=== PATIENT | male | born 1970 | race Caucasian/White ===

== ENCOUNTER 2016-07-04 11:39 | Emergency (ER) | payer OTHER ==
--- NOTE | 2016-07-04 13:32 | DIAGNOSTIC IMAGING REPORT ---
PROCEDURE: XR CHEST 1 VIEW INDICATION: SHORTNESS OF BREATH TECHNIQUE: Portable AP view 01:18 p.m. COMPARISON: None. FINDINGS: Poor inspiration with mild bibasilar atelectasis. Heart and mediastinum are normal. Mild levoconvex curvature of the thoracic spine. IMPRESSION: 1. Poor inspiration with mild bibasilar atelectasis
--- NOTE | 2016-07-04 17:52 | ED CLINICAL REPORT ---
Clinical Report - Physicians/Mid Levels [facility] [address] [place] [address] 07/04/2016 11:39 Patient: MARCO CLIFFORD I Time Seen: 11:57. Arrived- By ambulance. Historian- patient and EMS personnel. History limited by intoxication. Physical Exam limited by intoxication. HISTORY OF PRESENT ILLNESS Chief Complaint: DECREASED MENTAL STATUS and CONFUSION. This started today and is still present. It was gradual in onset and has been waxing/waning. The patient is described as having decreased responsiveness. No history of chronic dementia. He has had alcohol consumption recently. No recent drug use. (Pt found outside local business with altered mentation - admits to drinking excessive alcohol. He denies injury and was able to ambulate with EMS assistance to the ambulance. He [place] [facility] [place] No weakness, numbness or recent fall. He has had difficulty walking. The patient has also had coordination problems. Usually is alert and oriented X3 and usually has normal mobility. Similar symptoms previously: Recent medical care: The patient was seen recently at another facility in the emergency department. Seen for similar symptoms. Evaluation/treatment: labs. Diagnosis: intoxication (alcohol). ( extensive lab work up reviewed). REVIEW OF SYSTEMS No fever, headache, head injury, chest pain or difficulty breathing. No cough, sore throat, abdominal pain, nausea or diarrhea. No difficulty with urination, skin rash, vomiting, bloody stools or back pain. All systems otherwise negative, except as recorded above. PAST HISTORY Alcoholism. Medications: None. Allergies: No Known Drug Allergy. None. SOCIAL HISTORY Former smoker. Regular heavy alcohol use. Patient is a longstanding alcoholic. Under the influence in E.D. History of drug use: cocaine. ADDITIONAL NOTES The nursing notes have been reviewed. PHYSICAL EXAM Vital Signs: 07/04/2016 11:41 BP: 100/61. HR: 86. RR: 15. O2 saturation: 92%. Temp: 97.5 F. Pain level now: 0/10. Appearance: Lethargic. The patient's speech is slurred and odor of alcohol is present. Patient in moderate distress. Head: Head atraumatic. Eyes: Pupils equal, round and reactive to light. ENT: Normal ENT inspection. Airway intact. Moist mucous membranes. Pharynx normal. Neck: Normal inspection. Neck supple. CVS: Normal heart rate and rhythm. Heart sounds normal. Respiratory: No respiratory distress. Breath sounds normal. Abdomen: Soft and nontender. Back: Normal inspection. Skin: Skin warm and dry. Normal skin color. No rash. Normal skin turgor. Extremities: Extremities exhibit normal ROM. No calf tenderness. No lower extremity edema. Neuro: Altered mental status. Eyes open spontaneously. Best verbal response: disoriented. Best motor response: obeys commands. Abnormal verbal response (very slurred speech). Abnormal speech. Cerebellar findings present. No motor deficit. No sensory deficit. LABS, X-RAYS, AND EKG Laboratory Tests: UA-Culture if indicated: (ABDULAZIZ: 07/04/2016 11:50) ( [facility] 07/04/2016 12:35) Final results Test Result Flag Units (Reference) URINE COLOR YELLOW URINE APPEARANCE CLEAR URINE GLUCOSE NEGATIVE (NEGATIVE) URINE BILIRUBIN NEGATIVE (NEGATIVE) URINE KETONE NEGATIVE (NEGATIVE) URINE SPECIFIC GRAVITY <= 1.005 L (1.010-1.030) URINE PH 6.5 (5.0-8.0) URINE PROTEIN NEGATIVE (NEGATIVE) URINE UROBILINOGEN 0.2 EU/dL (0.2-1.0) URINE NITRITE NEGATIVE (NEGATIVE) URINE BLOOD NEGATIVE (NEGATIVE) URINE LEUK ESTERASE NEGATIVE (NEGATIVE) URINE RBC NONE SEEN rbc/hpf (0-1) URINE WBC 0-1 wbc/hpf (0-1) URINE EPITHELIAL CELLS 0-1 EPI/hpf (0-5) URINE BACTERIA NONE SEEN (NONE SEEN) URINE COMMENT CULT NOT INDICATED URINE CULTURES ARE SET-UP BASED ON THE FOLLOWING CRITERIA:POSITIVE NITRITEPOSITIVE LEUKOCYTE ESTERASEGREATER THAN 10 WHITE BLOOD CELLSMODERATE (2+) OR GREATER BACTERIA CBC w Diff: (ABDULAZIZ: 07/04/2016 12:10) ( [facility] 07/04/2016 12:30) Final results Test Result Flag Units (Reference) WHITE BLOOD COUNT 6.8 K/uL (4.5-11.5) RED BLOOD COUNT 4.55 M/uL (4.50-5.90) HEMOGLOBIN 14.2 gm/dL (13.5-17.5) HEMATOCRIT 42.7 % (41.0-53.0) MEAN CELL VOLUME 94 fL (80-100) MEAN CORPUSCULAR HGB 31 pg (26-34) MEAN CORPUSCULAR HGB CONC 33 g/dL (31-37) RED CELL DISTRIBUTION WIDTH 15.7 H % (11.6-14.8) PLATELET COUNT 260 K/uL (150-400) NEUTROPHIL % 55.8 % (50-75) LYMPH % 33.9 % (25-40) MONO % 5.0 % (3-14) EOSINOPHIL % 4.0 % (0-4) BASOPHIL % 1.3 % (0-2) BNP: (ABDULAZIZ: 07/04/2016 12:10) ( [facility] 07/04/2016 13:06) Final results Test Result Flag Units (Reference) B-TYPE NATRIURETIC PEPTIDE 33.9 pg/ml (5-100) CHEM 13 PANEL: (ABDULAZIZ: 07/04/2016 12:10) ( [facility] 07/04/2016 12:53) Final results Test Result Flag Units (Reference) GLUCOSE 94 mg/dL (70-110) BUN 13 mg/dL (7-18) CREATININE 0.8 mg/dL (0.6-1.3) Estimated GFR >60 mL/min Estimated GFR- >60 mL/min Note: Persistent reduction over 3 months in eGFR<60 mL/min/1.73 m2 defines CKD. Patients with eGFR values>=60 mL/min/1.73 m2 may also have CKD if evidence ofpersistent proteinuria. Additional information may be foundat www.kidney.org. SODIUM 144 mmol/L (136-145) POTASSIUM 3.6 mmol/L (3.5-5.1) CHLORIDE 105 mmol/L (98-107) CARBON DIOXIDE 31 mmol/L (21-32) CALCIUM 8.5 mg/dL (8.5-10.1) TOTAL PROTEIN 6.8 g/dL (6.4-8.2) ALBUMIN 3.2 L g/dL (3.3-5.0) BILIRUBIN, TOTAL 0.2 mg/dL (0.0-1.0) ALKALINE PHOSPHATASE 68 U/L (46-116) AST (SGOT) 31 U/L (15-37) ALT (SGPT) 25 U/L (12-78) MAGNESIUM 2.0 mg/dL (1.8-2.4) LIPASE 196 U/L (73-393) AMYLASE 36 U/L (25-115) CPK 108 U/L (24-260) TROPONIN I <0.05 ng/mL (0.00-1.5) TROPONIN REFERENCE RANGE:<0.1 NEGATIVE0.1-1.5 INDETERMINANT>1.5 POSITIVE ETHYL ALCOHOL 337 H mg/dL (3-10) Urine Drug Screen: (ABDULAZIZ: 07/04/2016 11:50) ( M[facility]d 07/04/2016 12:35) Final results Test Result Flag Units (Reference) AMPHETAMINE/METHAMPHETAMINE NEGATIVE (NEGATIVE) BARBITURATE NEGATIVE (NEGATIVE) BENZODIAZEPINE NEGATIVE (NEGATIVE) CANNABINOID NEGATIVE (NEGATIVE) COCAINE NEGATIVE (NEGATIVE) ECSTASY NEGATIVE (NEGATIVE) METHADONE NEGATIVE (NEGATIVE) OPIATE NEGATIVE (NEGATIVE) The urine drug screen is a qualitative screening test fordrug overdose and abuse. All screen results should beconsidered as presumptive.Drugs screened for are as follows:BenzodiazepinesCocaineAmphetamines/MetamphetaminesTHC (Tetrahydrocannabinol)OpiatesBarbituratesEcstasyMethadonePositive results are unconfirmed. For confirmation, notifythe lab for the specimen to be sent to the reference lab.All confirmations must be performed by a differentmethodology.The ingestion of natural herbal and plant productscontaining Ephedra/Ephedra metabolites can produce in urineone or more substances capable of cross reacting withamphetamine/methamphetamine immunoassays. These testsprovide a preliminary result only. A more specificalternative chemical method must be used to obtain aconfirmed analytical result. . Bedside Tests: Glucose normal - 94 (performed by EMS). Pulse Oximetry: 07/04/2016 16:30 O2 saturation: 97%. (FIO2 - room air). Interpretation: normal. Note - Tests: (Breathalyzer 0.219 at 16:30. Breathalyzer 0.178 at 17:45). PROGRESS AND PROCEDURES Course of Care: Normal Saline with thiamine 100mg + folate 1mg + 1 amp MVI IVPB given. 16:26 07/04/16. Patient is stable. Physical exam findings are improved. Symptoms much better. 16:26 07/04/16. Pt eating a sandwich and drinking fluids 16:37 07/04/16. Breathalyzer still 0.219. Pt will need additional time to further metabolize his alcohol 17:50 07/04/16. Pt wants to go. He is not ataxic now. He is laughing and joking. He has no complaints. He [place] [employer] [place]after [place]") - given bus passes. He is also given new shoes and socks after his feet were washed. 07/04/2016 16:30 BP: 115/74. HR: 72. RR: 18. O2 saturation: 97%. Pain level now: 0/10. Patient/family counseled. [facility] work up [facility]). Disposition: Discharged. Condition: stable and improved. CLINICAL IMPRESSION Uncomplicated alcohol intoxication with alcohol dependence. INSTRUCTIONS Drink plenty of fluids. No alcohol. Seek medical help to quit drinking. (Please take a multivitamin daily; Please refer to the "Addiction, Recovering and "Alcohol Inotoxication" instructions given at [facility] yesterday.). Warnings: Further evaluation is necessary in order to recheck abnormal lab, obtain test results, conduct further tests and assess the possibility of serious illness. It is very important to follow up with a physician. GENERAL WARNINGS: Return or contact your physician immediately if your condition worsens or changes unexpectedly, if not improving as expected, or if other problems arise. Follow-up: Follow up with your doctor at [facility] - [address] [place] [address] [place] [address]; phone number: [phone] tomorrow. Follow-up with: [facility], , , [address], , [place], ; [facility], [facility], , [address] [place] [address] Follow up tomorrow. (Electronically signed by Willy Maher DO 07/04/2016 20:11)
--- NOTE | 2016-07-04 17:52 | ED ORDER SUMMARY ---
..... Patient: MARCO CLIFFORD I OrderSheet [facility] VisitID: [id number] [address] [place] [address] 45y, M Registration Date/Time: 07/04/2016 ORDER SHEET Weight: 81.6 kg (estimated) Allergies: None, No Known Drug Allergy GENERAL ORDERS: Block Chopper Hand (Continuous) (altered LOC) (11:55 07/04/2016 KKnebel R.N. per protocol) (11:58 KKnebel R.N.) CBC w Diff Urgent (11:55 07/04/2016 KKnebel R.N. per protocol) (11:57 PHutchinson DO) (Cancelled: Other11:57 PHutchinson DO) CMP Urgent (11:55 07/04/2016 KKnebel R.N. per protocol) (11:57 PHutchinson DO) (Cancelled: Other11:57 PHutchinson DO) UA-Culture if indicated Urgent (11:55 07/04/2016 KKnebel R.N. per protocol) (Ack 12:02 PWeiler ER Tech1) (12:18 KKnebel R.N.) Urine Drug Screen Urgent (11:55 07/04/2016 KKnebel R.N. per protocol) (Ack 12:02 PWeiler ER Tech1) (12:18 KKnebel R.N.) Oxygen (2 L/min) (NC) (11:55 07/04/2016 KKnebel R.N. per protocol) (11:58 KKnebel R.N.) POC Glucose (11:55 07/04/2016 KKnebel R.N. per protocol) (12:31 KKnebel R.N.) Vitals (11:55 07/04/2016 KKnebel R.N. per protocol) (11:58 KKnebel R.N.) POC Breathalyzer (11:55 07/04/2016 KKnebel R.N. per protocol) (12:18 KKnebel R.N.) Lipase Urgent (11:58 07/04/2016 PHutchinson DO) (Ack 12:02 PWeiler ER Tech1) (12:18 KKnebel R.N.) Amylase Urgent (11:58 07/04/2016 [facility]) (Ack 12:02 PWeiler ER Tech1) (12:18 KKnebel R.N.) BNP Urgent (11:58 07/04/2016 [facility]) (Ack 12:02 PWeiler ER Tech1) (12:18 KKnebel R.N.) Cardiac Panel Stat (11:58 07/04/2016 [facility]) (Ack 12:02 PWeiler ER Tech1) (13:04 KHoerner) Ethyl Alcohol Urgent (11:58 [facility]04/2016 [facility] (Ack 12:02 PWeiler ER Tech1) (13:04 KHoerner) Chest 1V (upright) Urgent (13:05 07/04/2016 [facility]) (Ack 13:09 PWeiler ER Tech1) (13:17 PWeiler ER Tech1) [place] [facility] 48 hours[place] (14:40 07/04/2016 [facility]) (Ack 14:49 PWeiler ER Tech1) (15:35 PWeiler ER Tech1) Breathalyzer (18:10 07/04/2016 DDean R.N. verbal order read back to [facility]) (18:11 DDean R.N.) Breathalyzer (18:11 07/04/2016 DDean R.N. verbal order read back to [facility]) (18:11 DDean R.N.) now and repeat in 1 hour MEDICATION ORDERS: IV FLUIDS: IV Saline Lock (11:55 07/04/2016 KKnebel R.N. per protocol) (12:18 KKnebel R.N.) IV NS with Normal Saline 1 Liter, Folic Acid 1 mg/L, Multivitamin Concentrate Intravenous 1 amp/L, Thiamine HCl 100 mg/L: initial bolus 1000 mL (1000 mL/hr), then none - (NOW) (11:58 07/04/2016 [facility]) (12:59 KKnebel R.N.) Zofran IV 4 mg (NOW) (11:58 07/04/2016 [facility]) (12:27 KKnebel R.N.) ORDER SHEET NOTES: [Electronically signed by Mable Rutherford R.N. (18:11 07/04/2016)] [Electronically signed by Willy Maher DO (20:11 07/04/2016)] [Electronically locked/signed by Mable Rutherford R.N. (18:11 07/04/2016)]
--- NOTE | 2016-07-04 17:52 | ED ORDER SUMMARY ---
..... Patient: MARCO CLIFFORD I OrderSheet [facility] VisitID: [id number] [address] [place] [address] 45y, M Registration Date/Time: 07/04/2016 ORDER SHEET Weight: 81.6 kg (estimated) Allergies: None, No Known Drug Allergy GENERAL ORDERS: [employer] (Continuous) (altered LOC) (11:55 07/04/2016 KKnebel R.N. per protocol) (11:58 KKnebel R.N.) CBC w Diff Urgent (11:55 07/04/2016 KKnebel R.N. per protocol) (11:57 PHutchinson DO) (Cancelled: Other11:57 PHutchinson DO) CMP Urgent (11:55 07/04/2016 KKnebel R.N. per protocol) (11:57 PHutchinson DO) (Cancelled: Other11:57 PHutchinson DO) UA-Culture if indicated Urgent (11:55 07/04/2016 KKnebel R.N. per protocol) (Ack 12:02 PWeiler ER Tech1) (12:18 KKnebel R.N.) Urine Drug Screen Urgent (11:55 07/04/2016 KKnebel R.N. per protocol) (Ack 12:02 PWeiler ER Tech1) (12:18 KKnebel R.N.) Oxygen (2 L/min) (NC) (11:55 07/04/2016 KKnebel R.N. per protocol) (11:58 KKnebel R.N.) POC Glucose (11:55 07/04/2016 KKnebel R.N. per protocol) (12:31 KKnebel R.N.) Vitals (11:55 07/04/2016 KKnebel R.N. per protocol) (11:58 KKnebel R.N.) POC Breathalyzer (11:55 07/04/2016 KKnebel R.N. per protocol) (12:18 KKnebel R.N.) Lipase Urgent (11:58 07/04/2016 PHutchinson DO) (Ack 12:02 PWeiler ER Tech1) (12:18 KKnebel R.N.) Amylase Urgent (11:58 07/04/2016 [facility]) (Ack 12:02 PWeiler ER Tech1) (12:18 KKnebel R.N.) BNP Urgent (11:58 07/04/2016 [facility]) (Ack 12:02 PWeiler ER Tech1) (12:18 KKnebel R.N.) Cardiac Panel Stat (11:58 07/04/2016 [facility]) (Ack 12:02 PWeiler ER Tech1) (13:04 KHoerner) Ethyl Alcohol Urgent (11:58 [facility]2016 [facility] (Ack 12:02 PWeiler ER Tech1) (13:04 KHoerner) Chest 1V (upright) Urgent (13:05 07/04/2016 [facility]) (Ack 13:09 PWeiler ER Tech1) (13:17 PWeiler ER Tech1) Old Records ([place] [facility] [place] in past 48 hours) (14:40 07/04/2016 [facility]) (Ack 14:49 PWeiler ER Tech1) (15:35 PWeiler ER Tech1) Breathalyzer (18:10 07/04/2016 DDean R.N. verbal order read back to [facility]) (18:11 DDean R.N.) Breathalyzer (18:11 07/04/2016 DDean R.N. verbal order read back to [facility]) (18:11 DDean R.N.) now and repeat in 1 hour MEDICATION ORDERS: IV FLUIDS: IV Saline Lock (11:55 07/04/2016 KKnebel R.N. per protocol) (12:18 KKnebel R.N.) IV NS with Normal Saline 1 Liter, Folic Acid 1 mg/L, Multivitamin Concentrate Intravenous 1 amp/L, Thiamine HCl 100 mg/L: initial bolus 1000 mL (1000 mL/hr), then none - (NOW) (11:58 07/04/2016 [facility]) (12:59 KKnebel R.N.) Zofran IV 4 mg (NOW) (11:58 07/04/2016 [facility]) (12:27 KKnebel R.N.) ORDER SHEET NOTES: [Electronically signed by Mable Rutherford R.N. (18:11 07/04/2016)] [Electronically signed by Willy Maher DO (20:11 07/04/2016)] [Electronically locked/signed by Mable Rutherford R.N. (18:11 07/04/2016)]
--- NOTE | 2016-07-04 17:52 | ED NURSING NOTES ---
Clinical Report - Nurses [facility] [address] [place] [address] 07/04/2016 11:39 Patient: MARCO CLIFFORD I TRIAGE Triage time 11:41 Jul 04 2016. Acuity: LEVEL 3. Chief Complaint: INTOXICATION. Alert. No acute distress. DREA COMA SCORE: [place] Coma Scale: 14- eyes open spontaneously (4); best verbal response- disoriented (4); best motor response- obeys commands (6). --11:56 Georgina Abernathy R.N. 11:41 07/04/16. BP: 100/61. HR: 86. RR: 15. O2 saturation: 92%. Temp: 97.5 F. Pain level now: 0/10. --11:56 Georgina Abernathy R.N. Weight: 81.6 kg estimated. Height/Length: 70 inches Estimated. BMI: 25.8. --11:53 Georgina Abernathy R.N. Medications None. --11:45 Georgina Abernathy R.N. Allergies None. --11:45 Georgina Abernathy R.N. No Known Drug Allergy. --17:00 KrishMable mota R.N. History Arrived by EMS. Historian: patient. This occurred today. Treatment WHANAU SUPPORT WORKER: None. Finger stick glucose performed (94). BP: 116 / palp. HR: 86. RR: 14. O2 saturation: 95 % room air. PAST MEDICAL HX: Unknown. Immunizations: status is unknown. SOCIAL HX: Former smoker. Heavy alcohol use. Last drink was just prior to arrival. Patient smells of ETOH in the emergency department. History of drug use: cocaine. SELF HARM ASSESSMENT: A self harm assessment was performed. (unable to obtain). ABUSE ASSESSMENT: Abuse assessment: unable to obtain. FALL RISK ASSESSMENT: Fall risk assessment completed. Risk factors identified include patient impairment of mobility and cognition. Fall interventions initiated. Side rails up x2. Brakes on Bed in low position. Patient visible from nurses' station. Call light in reach of patient. Instructed not to get up without assistance. NUTRITIONAL RISK ASSESSMENT: The nutritional assessment could not be obtained due to the patient's condition. FUNCTIONAL ASSESSMENT: The functional assessment could not be obtained due to patient condition. LEARNING NEEDS ASSESSMENT: The learning needs assessment could not be obtained due to the patient's condition. SKIN INTEGRITY ASSESSMENT: Skin integrity risk assessment completed. No skin integrity risk identified. --11:56 Georgina Abernathy R.N. PROBLEMS: Substance Abuse. Etoh. --11:46 Georgina Abernathy R.N. ADDITIONAL SURGERIES: Unable to answer. --11:46 Georgina Abernathy R.N. Interventions ID band on patient. ID band checked. Protocol initiated (Overdose ETOH). To room. --11:56 Georgina Abernathy R.N. PHYSICAL ASSESSMENT GENERAL / NEURO / PSYCH: Alert. Appears in no acute distress. Patient smells of alcohol. Patient appears calm and cooperative. Gag reflex present. The patient is disoriented to place and time. Patient's speech is slurred and incoherent. RESPIRATORY: Respirations not labored. CVS: Capillary refill less than 2 seconds. GI / : Abdomen soft and nontender. SKIN: Skin is warm and dry. --11:57 Georgina Abernathy R.N. NURSING PROGRESS NOTES athletic monitor, pulse oximeter and NIBP monitor placed on patient; cardiac nurse specialist- Lead II; monitor alarms on. Patient gowned. Head of bed elevated. Patient identifiers checked. Call light placed in reach. Side rails up x 2. Bed placed in lowest position. Brakes of bed on. Patient ready for evaluation- chart flagged. --11:57 Georgina Abernathy R.N. 11:50 07/04/16. Patient ID band checked for patient name and birthdate. Patient verbalized understanding. Clean catch urine collected with return of yellow-colored clear urine; sample sent to lab for urinalysis, culture and drug screen. Specimen labeled in the presence of the patient. --12:16 Georgina Abernathy R.N. 12:05 07/04/16. ( Pt unable to do breathalyzer). --12:07 Alicia Arriaza 12:10 07/04/16. Patient ID band checked for patient name and birthdate. Blood samples drawn from the left hand peripheral IV site with syringe by nurse ; labeled in presence of the patient and sent to lab: rainbow set. Line flushed with 10 mL normal saline post blood draw. --12:17 Georgina Abernathy R.N. 12:10 07/04/2016 Site #1 started via IV in the left hand with an 20g angiocath, with aseptic technique and good blood return; one attempt. Saline lock flushed with 10 mL saline. --12:17 Georgina Abernathy R.N. 12:27 07/04/2016 Zofran (Ondansetron HCl) IVP 4 mg given over 2 minute(s) via site #1. Allergies verified and confirmed 5 rights. IV patency established. IV site checked: no pain, redness, or swelling. IV flushed thoroughly pre- and post-medication administration. IVP given by RN. --12:27 Georgina Abernathy R.N. Point of care testing: performed by nurse. Glucose: 99. Result shown to the ED physician. Orders were not received. --12:31 Georgina Abernathy R.N. 12:49 07/04/16. BP: 117/67. HR: 97. RR: 26. O2 saturation: 68% on room air. Additional comments: notified MD of change in VS. --12:50 Georgina Abernathy R.N. 12:50 07/04/16. O2 saturation: 80% on nasal cannula at 4 liters/minute. --12:50 Georgina Abernathy R.N. 12:50 07/04/16. O2 saturation: 97% on non-rebreather at 15 liters/minute. Additional comments: Notified MD that pt is now on NRB and current VS. --12:51 Georgina Abernathy R.N. 12:55 07/04/16. ( inserted Nasopharyngeal airway). --13:04 Georgina Abernathy R.N. 12:57 07/04/2016 Started bag #1 1000 mL IV Fluids IV NS (Saline); at 500 mL/hr with Thiamine [IVPB] 100mg, Folic Acid [IVPB] 1mg and Multivitamin [IVPB] 10unit dose over 2 hour(s) via site #1 via IV pump. Allergies verified and confirmed 5 rights. IV patency established. IV site checked: no pain, redness, or swelling. IV flushed thoroughly pre- and post-medication administration. --12:59 Georgina Abernathy R.N. ( patient pull airway and removed NRB when this nurse attempted to put NRB back on patient he grabbed and pulled it away aggressively with arms flailing about). --13:05 Georgina Abernathy R.N. 13:05 07/04/16. HR: 88. RR: 12. O2 saturation: 98% on room air. --13:06 Georgina Abernathy R.N. 14:18 07/04/16. BP: 117/92. HR: 86. RR: 13. O2 saturation: 100%. Pain level now unable to obtain. Additional comments: pt sleeping. --14:18 Georgina Abernathy R.N. 15:10 07/04/16. BP: 123/90. HR: 77. RR: 14. O2 saturation: 100% on non-rebreather. Temp: deferred. Pain level now unable to obtain. Additional comments: Pt sleeping in dark room. In no acute distress . --15:34 Mable Rutherford R.N. 15:10. Care transferred and report received. --15:34 Mable Rutherford R.N. 15:10 07/04/2016 IV Fluids IV NS Discontinued: bag #1 STOPPED. Total amount infused: 1000 mL (converted to saline lock). --15:37 Mable Rutherford R.N. 15:45 07/04/16. BP: 125/83. HR: 78. RR: 12. O2 saturation: 100% on non-rebreather. Temp: deferred. Pain level now unable to obtain. Additional comments: cont to sleep . --16:28 Mable Rutherford R.N. 1620 Pt up at bedside, voided 800cc light yellow urine. asking for sandwich. --16:29 Mable Rutherford R.N. 16:35 Pt given po food and fluid, in no distress. denies nausea. --16:41 Mable Rutherford R.N. 16:30 07/04/16. BP: 115/74. HR: 72. RR: 18. O2 saturation: 97% on room air. Temp: deferred. Pain level now: 0/10. Additional comments: pt asking for additional sandwich, in no distress . --16:41 Mable Rutherford R.N. 16:40. ( Breathalizer = 0.219 , ERMD notified. done by Alicia Espinoza technical project lead). --16:43 Mable Rutherford R.N. 17:01 07/04/16. ( admitting here to have pt sign paperwork). --17:01 Mable Rutherford R.N. 17:29 07/04/16. ( Pt given wash clothes and towels by technical project lead. Pt standing at sink.). --17:29 Mable Rutherford R.N. ( Breathalyzer done, showed .179.). --17:46 Willy Acharya, Tech1 17:41 07/04/2016 Site #1 removed upon discharge. Bandaid applied. --17:46 Mable Rutherford R.N. 17:41 07/04/2016 IV Saline Lock Drip IV Discontinued: bag #1 STOPPED upon discharge. Total amount infused: 0 mL. IV patency established. IV site checked: no pain, redness, or swelling. IV flushed thoroughly. --17:46 Mable Rutherford R.N. 17:48 07/04/16. ( pt had pulled out own IV. ERMD notified, site cleaned and bandaid placed over. Pt has voided another 700cc light [id number] urine). --17:48 Mable Rutherford R.N. DISPOSITION / DISCHARGE Condition at departure: improved and stable. No learning barriers present. Discharge instructions provided and reviewed with the patient. Patient verbalized understanding. Written instructions provided in Slovenian. The patient was discharged (states he was going to mission) and unaccompanied at time of discharge. He left the Emergency Department ambulatory and via bus. --18:09 Mable Rutherford R.N. 17:55 07/04/16. BP: 118/82. HR: 112. RR: 18. O2 saturation: 96% on room air. Temp: deferred. Pain level now: 0/10. --18:09 Malbe Rutherford R.N. Locked/Released at 07/04/2016 18:11 by Mable Rutherford R.N.
--- NOTE | 2016-07-04 17:52 | ED CLINICAL REPORT ---
Clinical Report - Physicians/Mid Levels [facility] [address] [place] [address] 07/04/2016 11:39 Patient: MARCO CLIFFORD I Time Seen: 11:57. Arrived- By ambulance. Historian- patient and EMS personnel. History limited by intoxication. Physical Exam limited by intoxication. HISTORY OF PRESENT ILLNESS Chief Complaint: DECREASED MENTAL STATUS and CONFUSION. This started today and is still present. It was gradual in onset and has been waxing/waning. The patient is described as having decreased responsiveness. No history of chronic dementia. He has had alcohol consumption recently. No recent drug use. (Pt found outside local business with altered mentation - admits to drinking excessive alcohol. He denies injury and was able to ambulate with EMS assistance to the ambulance. He reports being at [facility] yesterday for similar problems). No weakness, numbness or recent fall. He has had difficulty walking. The patient has also had coordination problems. Usually is alert and oriented X3 and usually has normal mobility. Similar symptoms previously: Recent medical care: The patient was seen recently at another facility in the emergency department. Seen for similar symptoms. Evaluation/treatment: labs. Diagnosis: intoxication (alcohol). ( extensive lab work up reviewed). REVIEW OF SYSTEMS No fever, headache, head injury, chest pain or difficulty breathing. No cough, sore throat, abdominal pain, nausea or diarrhea. No difficulty with urination, skin rash, vomiting, bloody stools or back pain. All systems otherwise negative, except as recorded above. PAST HISTORY Alcoholism. Medications: None. Allergies: No Known Drug Allergy. None. SOCIAL HISTORY Former smoker. Regular heavy alcohol use. Patient is a longstanding alcoholic. Under the influence in E.D. History of drug use: cocaine. ADDITIONAL NOTES The nursing notes have been reviewed. PHYSICAL EXAM Vital Signs: 07/04/2016 11:41 BP: 100/61. HR: 86. RR: 15. O2 saturation: 92%. Temp: 97.5 F. Pain level now: 0/10. Appearance: Lethargic. The patient's speech is slurred and odor of alcohol is present. Patient in moderate distress. Head: Head atraumatic. Eyes: Pupils equal, round and reactive to light. ENT: Normal ENT inspection. Airway intact. Moist mucous membranes. Pharynx normal. Neck: Normal inspection. Neck supple. CVS: Normal heart rate and rhythm. Heart sounds normal. Respiratory: No respiratory distress. Breath sounds normal. Abdomen: Soft and nontender. Back: Normal inspection. Skin: Skin warm and dry. Normal skin color. No rash. Normal skin turgor. Extremities: Extremities exhibit normal ROM. No calf tenderness. No lower extremity edema. Neuro: Altered mental status. Eyes open spontaneously. Best verbal response: disoriented. Best motor response: obeys commands. Abnormal verbal response (very slurred speech). Abnormal speech. Cerebellar findings present. No motor deficit. No sensory deficit. LABS, X-RAYS, AND EKG Laboratory Tests: UA-Culture if indicated: (ABDULAZIZ: 07/04/2016 11:50) ( [facility] 07/04/2016 12:35) Final results Test Result Flag Units (Reference) URINE COLOR YELLOW URINE APPEARANCE CLEAR URINE GLUCOSE NEGATIVE (NEGATIVE) URINE BILIRUBIN NEGATIVE (NEGATIVE) URINE KETONE NEGATIVE (NEGATIVE) URINE SPECIFIC GRAVITY <= 1.005 L (1.010-1.030) URINE PH 6.5 (5.0-8.0) URINE PROTEIN NEGATIVE (NEGATIVE) URINE UROBILINOGEN 0.2 EU/dL (0.2-1.0) URINE NITRITE NEGATIVE (NEGATIVE) URINE BLOOD NEGATIVE (NEGATIVE) URINE LEUK ESTERASE NEGATIVE (NEGATIVE) URINE RBC NONE SEEN rbc/hpf (0-1) URINE WBC 0-1 wbc/hpf (0-1) URINE EPITHELIAL CELLS 0-1 EPI/hpf (0-5) URINE BACTERIA NONE SEEN (NONE SEEN) URINE COMMENT CULT NOT INDICATED URINE CULTURES ARE SET-UP BASED ON THE FOLLOWING CRITERIA:POSITIVE NITRITEPOSITIVE LEUKOCYTE ESTERASEGREATER THAN 10 WHITE BLOOD CELLSMODERATE (2+) OR GREATER BACTERIA CBC w Diff: (ABDULAZIZ: 07/04/2016 12:10) ( [facility] 07/04/2016 12:30) Final results Test Result Flag Units (Reference) WHITE BLOOD COUNT 6.8 K/uL (4.5-11.5) RED BLOOD COUNT 4.55 M/uL (4.50-5.90) HEMOGLOBIN 14.2 gm/dL (13.5-17.5) HEMATOCRIT 42.7 % (41.0-53.0) MEAN CELL VOLUME 94 fL (80-100) MEAN CORPUSCULAR HGB 31 pg (26-34) MEAN CORPUSCULAR HGB CONC 33 g/dL (31-37) RED CELL DISTRIBUTION WIDTH 15.7 H % (11.6-14.8) PLATELET COUNT 260 K/uL (150-400) NEUTROPHIL % 55.8 % (50-75) LYMPH % 33.9 % (25-40) MONO % 5.0 % (3-14) EOSINOPHIL % 4.0 % (0-4) BASOPHIL % 1.3 % (0-2) BNP: (ABDULAZIZ: 07/04/2016 12:10) ( [facility] 07/04/2016 13:06) Final results Test Result Flag Units (Reference) B-TYPE NATRIURETIC PEPTIDE 33.9 pg/ml (5-100) CHEM 13 PANEL: (ABDULAZIZ: 07/04/2016 12:10) ( [facility] 07/04/2016 12:53) Final results Test Result Flag Units (Reference) GLUCOSE 94 mg/dL (70-110) BUN 13 mg/dL (7-18) CREATININE 0.8 mg/dL (0.6-1.3) Estimated GFR >60 mL/min Estimated GFR- >60 mL/min Note: Persistent reduction over 3 months in eGFR<60 mL/min/1.73 m2 defines CKD. Patients with eGFR values>=60 mL/min/1.73 m2 may also have CKD if evidence ofpersistent proteinuria. Additional information may be foundat www.kidney.org. SODIUM 144 mmol/L (136-145) POTASSIUM 3.6 mmol/L (3.5-5.1) CHLORIDE 105 mmol/L (98-107) CARBON DIOXIDE 31 mmol/L (21-32) CALCIUM 8.5 mg/dL (8.5-10.1) TOTAL PROTEIN 6.8 g/dL (6.4-8.2) ALBUMIN 3.2 L g/dL (3.3-5.0) BILIRUBIN, TOTAL 0.2 mg/dL (0.0-1.0) ALKALINE PHOSPHATASE 68 U/L (46-116) AST (SGOT) 31 U/L (15-37) ALT (SGPT) 25 U/L (12-78) MAGNESIUM 2.0 mg/dL (1.8-2.4) LIPASE 196 U/L (73-393) AMYLASE 36 U/L (25-115) CPK 108 U/L (24-260) TROPONIN I <0.05 ng/mL (0.00-1.5) TROPONIN REFERENCE RANGE:<0.1 NEGATIVE0.1-1.5 INDETERMINANT>1.5 POSITIVE ETHYL ALCOHOL 337 H mg/dL (3-10) Urine Drug Screen: (ABDULAZIZ: 07/04/2016 11:50) ( MsgRcvd 07/04/2016 12:35) Final results Test Result Flag Units (Reference) AMPHETAMINE/METHAMPHETAMINE NEGATIVE (NEGATIVE) BARBITURATE NEGATIVE (NEGATIVE) BENZODIAZEPINE NEGATIVE (NEGATIVE) CANNABINOID NEGATIVE (NEGATIVE) COCAINE NEGATIVE (NEGATIVE) ECSTASY NEGATIVE (NEGATIVE) METHADONE NEGATIVE (NEGATIVE) OPIATE NEGATIVE (NEGATIVE) The urine drug screen is a qualitative screening test fordrug overdose and abuse. All screen results should beconsidered as presumptive.Drugs screened for are as follows:BenzodiazepinesCocaineAmphetamines/MetamphetaminesTHC (Tetrahydrocannabinol)OpiatesBarbituratesEcstasyMethadonePositive results are unconfirmed. For confirmation, notifythe lab for the specimen to be sent to the reference lab.All confirmations must be performed by a differentmethodology.The ingestion of natural herbal and plant productscontaining Ephedra/Ephedra metabolites can produce in urineone or more substances capable of cross reacting withamphetamine/methamphetamine immunoassays. These testsprovide a preliminary result only. A more specificalternative chemical method must be used to obtain aconfirmed analytical result. . Bedside Tests: Glucose normal - 94 (performed by EMS). Pulse Oximetry: 07/04/2016 16:30 O2 saturation: 97%. (FIO2 - room air). Interpretation: normal. Note - Tests: (Breathalyzer 0.219 at 16:30. Breathalyzer 0.178 at 17:45). PROGRESS AND PROCEDURES Course of Care: Normal Saline with thiamine 100mg + folate 1mg + 1 amp MVI IVPB given. 16:26 07/04/16. Patient is stable. Physical exam findings are improved. Symptoms much better. 16:26 07/04/16. Pt eating a sandwich and drinking fluids 16:37 07/04/16. Breathalyzer still 0.219. Pt will need additional time to further metabolize his alcohol 17:50 07/04/16. Pt wants to go. He is not ataxic now. He is laughing and joking. He has no complaints. He states he [facility] to [facility] [employer] ("after I get a drink") - given bus passes. He is also given new shoes and socks after his feet were washed. 07/04/2016 16:30 BP: 115/74. HR: 72. RR: 18. O2 saturation: 97%. Pain level now: 0/10. Patient/family counseled. [facility] work up reviewed). Disposition: Discharged. Condition: stable and improved. CLINICAL IMPRESSION Uncomplicated alcohol intoxication with alcohol dependence. INSTRUCTIONS Drink plenty of fluids. No alcohol. Seek medical help to quit drinking. (Please take a multivitamin daily; Please refer to the "Addiction, Recovering and "Alcohol Inotoxication" instructions given at [place] yesterday.). Warnings: Further evaluation is necessary in order to recheck abnormal lab, obtain test results, conduct further tests and assess the possibility of serious illness. It is very important to follow up with a physician. GENERAL WARNINGS: Return or contact your physician immediately if your condition worsens or changes unexpectedly, if not improving as expected, or if other problems arise. Follow-up: Follow up with your doctor at [facility] - [address] [place] [address] [place] [address]; phone number: [phone] tomorrow. Follow-up with: [facility], , , [address] [facility], , [place], ; [facility], [facility], , [address] [place] [address] Follow up tomorrow. (Electronically signed by Willy Maher DO 07/04/2016 20:11)
--- NOTE | 2016-07-04 17:52 | ED NURSING NOTES ---
Clinical Report - Nurses [facility] [address] [place] [address] 07/04/2016 11:39 Patient: MARCO CLIFFORD I TRIAGE Triage time 11:41 Jul 04 2016. Acuity: LEVEL 3. Chief Complaint: INTOXICATION. Alert. No acute distress. DREA COMA SCORE: [employer] Coma Scale: 14- eyes open spontaneously (4); best verbal response- disoriented (4); best motor response- obeys commands (6). --11:56 Georgina Abernathy R.N. 11:41 07/04/16. BP: 100/61. HR: 86. RR: 15. O2 saturation: 92%. Temp: 97.5 F. Pain level now: 0/10. --11:56 Georgina Abernathy R.N. Weight: 81.6 kg estimated. Height/Length: 70 inches Estimated. BMI: 25.8. --11:53 Georgina Abernathy R.N. Medications None. --11:45 Georgina Abernathy R.N. Allergies None. --11:45 Georgina Abernathy R.N. No Known Drug Allergy. --17:00 KrishMable mota R.N. History Arrived by EMS. Historian: patient. This occurred today. Treatment MAID HOUSEKEEPER: None. Finger stick glucose performed (94). BP: 116 / palp. HR: 86. RR: 14. O2 saturation: 95 % room air. PAST MEDICAL HX: Unknown. Immunizations: status is unknown. SOCIAL HX: Former smoker. Heavy alcohol use. Last drink was just prior to arrival. Patient smells of ETOH in the emergency department. History of drug use: cocaine. SELF HARM ASSESSMENT: A self harm assessment was performed. (unable to obtain). ABUSE ASSESSMENT: Abuse assessment: unable to obtain. FALL RISK ASSESSMENT: Fall risk assessment completed. Risk factors identified include patient impairment of mobility and cognition. Fall interventions initiated. Side rails up x2. Brakes on Bed in low position. Patient visible from nurses' station. Call light in reach of patient. Instructed not to get up without assistance. NUTRITIONAL RISK ASSESSMENT: The nutritional assessment could not be obtained due to the patient's condition. FUNCTIONAL ASSESSMENT: The functional assessment could not be obtained due to patient condition. LEARNING NEEDS ASSESSMENT: The learning needs assessment could not be obtained due to the patient's condition. SKIN INTEGRITY ASSESSMENT: Skin integrity risk assessment completed. No skin integrity risk identified. --11:56 Georgina Abernathy R.N. PROBLEMS: Substance Abuse. Etoh. --11:46 Georgina Abernathy R.N. ADDITIONAL SURGERIES: Unable to answer. --11:46 Georgina Abernathy R.N. Interventions ID band on patient. ID band checked. Protocol initiated (Overdose ETOH). To room. --11:56 Georgina Abernathy R.N. PHYSICAL ASSESSMENT GENERAL / NEURO / PSYCH: Alert. Appears in no acute distress. Patient smells of alcohol. Patient appears calm and cooperative. Gag reflex present. The patient is disoriented to place and time. Patient's speech is slurred and incoherent. RESPIRATORY: Respirations not labored. CVS: Capillary refill less than 2 seconds. GI / : Abdomen soft and nontender. SKIN: Skin is warm and dry. --11:57 Georgina Abernathy R.N. NURSING PROGRESS NOTES drug clerk, pulse oximeter and NIBP monitor placed on patient; ice cream dispenser- Lead II; monitor alarms on. Patient gowned. Head of bed elevated. Patient identifiers checked. Call light placed in reach. Side rails up x 2. Bed placed in lowest position. Brakes of bed on. Patient ready for evaluation- chart flagged. --11:57 Georgina Abernathy R.N. 11:50 07/04/16. Patient ID band checked for patient name and birthdate. Patient verbalized understanding. Clean catch urine collected with return of yellow-colored clear urine; sample sent to lab for urinalysis, culture and drug screen. Specimen labeled in the presence of the patient. --12:16 Georgina Abernathy R.N. 12:05 07/04/16. ( Pt unable to do breathalyzer). --12:07 Alicia Arriaza 12:10 07/04/16. Patient ID band checked for patient name and birthdate. Blood samples drawn from the left hand peripheral IV site with syringe by nurse ; labeled in presence of the patient and sent to lab: rainbow set. Line flushed with 10 mL normal saline post blood draw. --12:17 Georgina Abernathy R.N. 12:10 07/04/2016 Site #1 started via IV in the left hand with an 20g angiocath, with aseptic technique and good blood return; one attempt. Saline lock flushed with 10 mL saline. --12:17 Georgina Abernathy R.N. 12:27 07/04/2016 Zofran (Ondansetron HCl) IVP 4 mg given over 2 minute(s) via site #1. Allergies verified and confirmed 5 rights. IV patency established. IV site checked: no pain, redness, or swelling. IV flushed thoroughly pre- and post-medication administration. IVP given by RN. --12:27 Georgina Abernathy R.N. Point of care testing: performed by nurse. Glucose: 99. Result shown to the ED physician. Orders were not received. --12:31 Georgina Abernathy R.N. 12:49 07/04/16. BP: 117/67. HR: 97. RR: 26. O2 saturation: 68% on room air. Additional comments: notified MD of change in VS. --12:50 Georgina Abernathy R.N. 12:50 07/04/16. O2 saturation: 80% on nasal cannula at 4 liters/minute. --12:50 Georgina Abernathy R.N. 12:50 07/04/16. O2 saturation: 97% on non-rebreather at 15 liters/minute. Additional comments: Notified MD that pt is now on NRB and current VS. --12:51 Georgina Abernathy R.N. 12:55 07/04/16. ( inserted Nasopharyngeal airway). --13:04 Georgina Abernathy R.N. 12:57 07/04/2016 Started bag #1 1000 mL IV Fluids IV NS (Saline); at 500 mL/hr with Thiamine [IVPB] 100mg, Folic Acid [IVPB] 1mg and Multivitamin [IVPB] 10unit dose over 2 hour(s) via site #1 via IV pump. Allergies verified and confirmed 5 rights. IV patency established. IV site checked: no pain, redness, or swelling. IV flushed thoroughly pre- and post-medication administration. --12:59 Georgina Abernathy R.N. ( patient pull airway and removed NRB when this nurse attempted to put NRB back on patient he grabbed and pulled it away aggressively with arms flailing about). --13:05 Georgina Abernathy R.N. 13:05 07/04/16. HR: 88. RR: 12. O2 saturation: 98% on room air. --13:06 Georgina Abernathy R.N. 14:18 07/04/16. BP: 117/92. HR: 86. RR: 13. O2 saturation: 100%. Pain level now unable to obtain. Additional comments: pt sleeping. --14:18 Georgina Abernathy R.N. 15:10 07/04/16. BP: 123/90. HR: 77. RR: 14. O2 saturation: 100% on non-rebreather. Temp: deferred. Pain level now unable to obtain. Additional comments: Pt sleeping in dark room. In no acute distress . --15:34 Mable Rutherford R.N. 15:10. Care transferred and report received. --15:34 Mable Rutherford R.N. 15:10 07/04/2016 IV Fluids IV NS Discontinued: bag #1 STOPPED. Total amount infused: 1000 mL (converted to saline lock). --15:37 Mable Rutherford R.N. 15:45 07/04/16. BP: 125/83. HR: 78. RR: 12. O2 saturation: 100% on non-rebreather. Temp: deferred. Pain level now unable to obtain. Additional comments: cont to sleep . --16:28 Mable Rutherford R.N. 1620 Pt up at bedside, voided 800cc light yellow urine. asking for sandwich. --16:29 Mable Rutherford R.N. 16:35 Pt given po food and fluid, in no distress. denies nausea. --16:41 Mable Rutherford R.N. 16:30 07/04/16. BP: 115/74. HR: 72. RR: 18. O2 saturation: 97% on room air. Temp: deferred. Pain level now: 0/10. Additional comments: pt asking for additional sandwich, in no distress . --16:41 Mable Rutherford R.N. 16:40. ( Breathalizer = 0.219 , ERMD notified. done by Alicia Espinoza traffic analysis technician). --16:43 Mable Rutherford R.N. 17:01 07/04/16. ( admitting here to have pt sign paperwork). --17:01 Mable Rutherford R.N. 17:29 07/04/16. ( Pt given wash clothes and towels by traffic analysis technician. Pt standing at sink.). --17:29 Mable Rutherford R.N. ( Breathalyzer done, showed .179.). --17:46 Willy Acharya, Tech1 17:41 07/04/2016 Site #1 removed upon discharge. Bandaid applied. --17:46 Mable Rutherford R.N. 17:41 07/04/2016 IV Saline Lock Drip IV Discontinued: bag #1 STOPPED upon discharge. Total amount infused: 0 mL. IV patency established. IV site checked: no pain, redness, or swelling. IV flushed thoroughly. --17:46 Mable Rutherford R.N. 17:48 07/04/16. ( pt had pulled out own IV. ERMD notified, site cleaned and bandaid placed over. Pt has voided another 700cc light [id number] urine). --17:48 Mable Rutherford R.N. DISPOSITION / DISCHARGE Condition at departure: improved and stable. No learning barriers present. Discharge instructions provided and reviewed with the patient. Patient verbalized understanding. Written instructions provided in [place]. The patient was discharged (states he was going to mission) and unaccompanied at time of discharge. He left the Emergency Department ambulatory and via bus. --18:09 Mable Rutherford R.N. 17:55 07/04/16. BP: 118/82. HR: 112. RR: 18. O2 saturation: 96% on room air. Temp: deferred. Pain level now: 0/10. --18:09 Mable Rutherford R.N. Locked/Released at 07/04/2016 18:11 by Mable Rutherford R.N.
--- NOTE | 2016-07-04 20:11 | ED MAR SUMMARY ---
..... Medication Administration Record [facility] [address] [place] [address] Patient: MARCO CLIFFORD I Visit ID: [id number] 45y, M Weight: 81.6 kg Height/Length: 70 in BMI: 25.8 ALLERGIES: None, No Known Drug Allergy Given 12:27 07/04/2016 Georgina Abernathy R.N. Medication Administered: ZOFRAN [IVP] (ONDANSETRON HCL), Dose: 4 mg IVP over 2 minute(s), Site: #1 left hand. Medication Ordered: Zofran IV 4 mg (NOW). Start 12:57 07/04/2016 Georgina Abernathy R.N., Stop 15:10 07/04/2016 KrishMable R.N. Medication Administered: IV NS (SALINE), Dose: IV Fluids over 2 hour(s), With: FOLIC ACID [IVPB] 1 mg; MULTIVITAMIN [IVPB] 10 unit dose; THIAMINE [IVPB] 100 mg, Rate: 500 mL/hr, Dispensed: 1000 mL bag, Site: #1 left hand. Medication Ordered: IV NS with Normal Saline 1 Liter, Folic Acid 1 mg/L, Multivitamin Concentrate Intravenous 1 amp/L, Thiamine HCl 100 mg/L: initial bolus 1000 mL (1000 mL/hr), then none - (NOW).
--- NOTE | 2016-07-04 20:11 | ED DISCHARGE INSTRUCTIONS ---
Patient: MARCO CLIFFORD I General Instructions [facility] VisitID: [id number] [address] [place] [address] 45y, M Registration Date/Time: 07/04/2016 Uncomplicated alcohol intoxication with alcohol dependence. INSTRUCTIONS Drink plenty of fluids. No alcohol. Seek medical help to quit drinking. (Please take a multivitamin daily; Please refer to the "Addiction, Recovering and "Alcohol Inotoxication" instructions given at [place] yesterday.). Warnings: Further evaluation is necessary in order to recheck abnormal lab, obtain test results, conduct further tests and assess the possibility of serious illness. It is very important to follow up with a physician. GENERAL WARNINGS: Return or contact your physician immediately if your condition worsens or changes unexpectedly, if not improving as expected, or if other problems arise. Follow-up: Follow up with your doctor at [address] [address]; phone number: [phone] tomorrow. Follow-up with: [facility], , , [address] [place] [address], , [place], ; [facility], , [address] [place] [address] Follow up tomorrow. ADDITIONAL INFORMATION Alcohol Intoxication Alcohol intoxication occurs when you drink alcohol faster than your liver can remove it from your system. Alcohol intoxication affects your judgment and coordination. Very high blood alcohol levels can cause coma, very slow breathing and even . If you drink alcohol every day, this may gradually cause permanent damage to your liver, brain, heart, pancreas and other organs. Alcohol use during may cause permanent damage to the growing baby. Home Care: Do not drink any more alcohol. DO NOT DRIVE until all effects of the alcohol have worn off. Get lots of rest over the next few days. Drink plenty of water and other non-alcoholic liquids. Try to eat regular meals. If you have been drinking heavily on a daily basis, you may go through alcohol withdrawl. This is also called the shakes or DTs. The usual symptoms last 3 to 4 days and may include nervousness, shakiness, nausea, sweating or sleeplessness. During this time, it is best that you stay with family or friends who can help and support you. You can also admit yourself to a residential detox program. If your symptoms are severe, contact your doctor for medicines to help. Follow Up: If alcohol is causing a problem in your life, these and other organizations can help you: Alcoholics Anonymous offers support through a self-help fellowship. There are no dues or fees. See the Yellow Pages and call for time and place of meetings. www.aa.org [employer] offers support to families of alcohol users. 547.900.8797 www.al-anon.org National [place] On Alcoholism And Drug Dependence 595-654-3742 www.ncadd.org There are also inpatient or residential alcohol detox programs. Check the Internet or phonebook Yellow Pages under Drug Abuse & Treatment Centers. Get Prompt Medical Attention if any of the following occur: there) You have been given the following additional information: Alcohol Intoxication (Electronically signed by Willy Maher DO 07/04/2016 20:11)
--- NOTE | 2016-07-04 20:11 | ED MED RECONCILIATION SUMMARY ---
Patient: MARCO CLIFFORD I Medication Reconciliation Report [facility] VisitID: [id number] [address] [place] [address] 45y, M Registration Date/Time: 07/04/2016 Weight: 81.6 kg Height/Length: 70 in. BMI: 25.8 ALLERGIES: No Known Drug Allergy, None The patient's Home Medications are listed below: NONE. The source(s) of the original Home Medication information: Not obtained. The following Medications were given to the patient in the Emergency Department: Zofran [IVP] IVP 4 mg, administered: 07/04/2016 12:27:00 PM IV NS IV Fluids bolus 0, then 500 mL/hr with Folic Acid [IVPB] 1 mg, Multivitamin [IVPB] 10 unit dose and Thiamine [IVPB] 100 mg, administered: 07/04/2016 12:57:00 PM The following Medications were prescribed to the patient: None.
--- NOTE | 2016-07-04 20:11 | ED DISCHARGE INSTRUCTIONS ---
Patient: MARCO CLIFFORD I General Instructions [facility] VisitID: [id number] [address] [place] [address] 45y, M Registration Date/Time: 07/04/2016 Uncomplicated alcohol intoxication with alcohol dependence. INSTRUCTIONS Drink plenty of fluids. No alcohol. Seek medical help to quit drinking. (Please take a multivitamin daily; Please refer to the "Addiction, Recovering and "Alcohol Inotoxication" instructions given at [place] yesterday.). Warnings: Further evaluation is necessary in order to recheck abnormal lab, obtain test results, conduct further tests and assess the possibility of serious illness. It is very important to follow up with a physician. GENERAL WARNINGS: Return or contact your physician immediately if your condition worsens or changes unexpectedly, if not improving as expected, or if other problems arise. Follow-up: Follow up with your doctor at [address] [address]; phone number: [phone] tomorrow. Follow-up with: [facility], , , [address] [place] [address], , [place], ; [facility], , [address] [place] [address] Follow up tomorrow. ADDITIONAL INFORMATION Alcohol Intoxication Alcohol intoxication occurs when you drink alcohol faster than your liver can remove it from your system. Alcohol intoxication affects your judgment and coordination. Very high blood alcohol levels can cause coma, very slow breathing and even . If you drink alcohol every day, this may gradually cause permanent damage to your liver, brain, heart, pancreas and other organs. Alcohol use during may cause permanent damage to the growing baby. Home Care: Do not drink any more alcohol. DO NOT DRIVE until all effects of the alcohol have worn off. Get lots of rest over the next few days. Drink plenty of water and other non-alcoholic liquids. Try to eat regular meals. If you have been drinking heavily on a daily basis, you may go through alcohol withdrawl. This is also called the shakes or DTs. The usual symptoms last 3 to 4 days and may include nervousness, shakiness, nausea, sweating or sleeplessness. During this time, it is best that you stay with family or friends who can help and support you. You can also admit yourself to a residential detox program. If your symptoms are severe, contact your doctor for medicines to help. Follow Up: If alcohol is causing a problem in your life, these and other organizations can help you: Alcoholics Anonymous offers support through a self-help fellowship. There are no dues or fees. See the Yellow Pages and call for time and place of meetings. www.aa.org [employer] offers support to families of alcohol users. 322.727.7290 www.al-anon.org National [place] On Alcoholism And Drug Dependence 533-438-6833 www.ncadd.org There are also inpatient or residential alcohol detox programs. Check the Internet or phonebook Yellow Pages under Drug Abuse & Treatment Centers. Get Prompt Medical Attention if any of the following occur: there) You have been given the following additional information: Alcohol Intoxication (Electronically signed by Willy Maher DO 07/04/2016 20:11)
--- NOTE | 2016-07-04 20:11 | ED MED RECONCILIATION SUMMARY ---
Patient: MARCO CLIFFORD I Medication Reconciliation Report [facility] VisitID: [id number] [address] [place] [address] 45y, M Registration Date/Time: 07/04/2016 Weight: 81.6 kg Height/Length: 70 in. BMI: 25.8 ALLERGIES: No Known Drug Allergy, None The patient's Home Medications are listed below: NONE. The source(s) of the original Home Medication information: Not obtained. The following Medications were given to the patient in the Emergency Department: Zofran [IVP] IVP 4 mg, administered: 07/04/2016 12:27:00 PM IV NS IV Fluids bolus 0, then 500 mL/hr with Folic Acid [IVPB] 1 mg, Multivitamin [IVPB] 10 unit dose and Thiamine [IVPB] 100 mg, administered: 07/04/2016 12:57:00 PM The following Medications were prescribed to the patient: None.
--- NOTE | 2016-07-04 20:11 | ED MAR SUMMARY ---
..... Medication Administration Record [facility] [address] [place] [address] Patient: MARCO CLIFFORD I Visit ID: [id number] 45y, M Weight: 81.6 kg Height/Length: 70 in BMI: 25.8 ALLERGIES: None, No Known Drug Allergy Given 12:27 07/04/2016 Georgina Abernathy R.N. Medication Administered: ZOFRAN [IVP] (ONDANSETRON HCL), Dose: 4 mg IVP over 2 minute(s), Site: #1 left hand. Medication Ordered: Zofran IV 4 mg (NOW). Start 12:57 07/04/2016 Georgina Abernathy R.N., Stop 15:10 07/04/2016 KrishMable R.N. Medication Administered: IV NS (SALINE), Dose: IV Fluids over 2 hour(s), With: FOLIC ACID [IVPB] 1 mg; MULTIVITAMIN [IVPB] 10 unit dose; THIAMINE [IVPB] 100 mg, Rate: 500 mL/hr, Dispensed: 1000 mL bag, Site: #1 left hand. Medication Ordered: IV NS with Normal Saline 1 Liter, Folic Acid 1 mg/L, Multivitamin Concentrate Intravenous 1 amp/L, Thiamine HCl 100 mg/L: initial bolus 1000 mL (1000 mL/hr), then none - (NOW).
== END 2016-07-04 17:55 | disposition home or self-care (01) ==
LOC: ED SRH 11:39
DX: F10.220 Alcohol dependence with intoxication, uncomplicated (principal); Y90.8 Blood alcohol level of 240 mg/100 ml or more; Z87.891 Personal history of nicotine dependence
CPT/HCPCS: 80228; 90004; 90098; 90100; 90616; 91320; 92010; 92235; 92530; 92610; 92720; 92760; 92761; 92762; 92763; 92764; 92765; 92766; 92767; 95059